=== PATIENT | female | born 1935 | race Caucasian/White ===

== ENCOUNTER 2017-03-12 16:08 | Emergency (ER) | payer OTHER ==
--- NOTE | ~2017-03-12 | CR72 ---
[facility] A Service of [facility] RADIOLOGY TEXT RESULTS PATIENT: BRIGID PENA LOCATION: [facility] : 31 UNIT #: [id number] AGE: [address]: Lance Ramirez MD SEX: F ORDER DR: [id number] [facility] [address] [place], [place] [address] [id number] MR#: [id number] Acc #: [id number] NAME: BRIGID PENA : 1935 SEX: F STUDY DATE/TIME: 03/12/2017 17:11 UNIT: [facility] ROOM: STUDY DESCRIPTION: CR Chest Single View Portable Attending Physician: Lance Ramirez M.D. Ordering Physician: Lance Ramirez M.D. Primary Care Physician: Manjit Rasmussen M.D. MEDICAL IMAGING REPORT This report is preliminary unless electronic signature is present EXAM Portable chest x-ray 03/12/2017 HISTORY Short of air. Right breast cancer. Mouth cancer. Syncope. Short of air with activity, began 03/12/2017. Status post fall. TECHNIQUE AP radiograph of the chest is presented COMPARISON Chest radiograph 02/16/2011, CT examination 02/11/2013, and prior chest radiographs from 01/2007 and 04/2006 FINDINGS The patient appears to be status post right mastectomy and axillary node dissection. No clearly acute bony abnormality. Heart upper limits of normal in size to mildly enlarged. Lung volumes moderate. No acute pulmonary disease, pleural effusion or pneumothorax. No suspicious nodule. Area of increased density right paratracheal region just above the medial right clavicle, unchanged from multiple prior studies dating to 2005 and favored to represent superimposition artifact of bony structures and tortuous mediastinal vessels. No indication of suspicious pulmonary nodule. The upper abdomen shows gallstone. Also seen on multiple prior studies, visualized bowel gas pattern normal. Dictated by... Gene Blanchard M.D. THIS IS AN ELECTRONICALLY VERIFIED REPORT [facility] A Service of [facility] RADIOLOGY TEXT RESULTS PATIENT: BRIGID PENA LOCATION: [facility] : 31 UNIT #: [id number] AGE: [address]: Lance Ramirez MD SEX: F ORDER DR: Gene Blanchard M.D. at 03/14/2017 11:34 AM FLAVIO/alek TD: 03/13/2017 13:02 JOB #: [id number] MEDICAL IMAGING REPORT Page 1 of 1 COPY
--- NOTE | ~2017-03-12 | EKG ---
PATIENT: BRIGID PENA UNIT #: [id number] Ventricular Rate: 134 BPM Atrial Rate: 138 BPM QRS Duration: 80 ms Q-T Interval: 294 ms QTC Calculation(Bezet): 439 ms Calculated R [place]: 16 degrees Calculated T [place]: -175 degrees Diagnosis Line: Atrial fibrillation with rapid ventricular Diagnosis Line: response Diagnosis Line: Voltage criteria for left ventricular hypertrophy Diagnosis Line: ST and T wave abnormality, consider inferior Diagnosis Line: ischemia Diagnosis Line: ST and T wave abnormality, consider anterolateral Diagnosis Line: ischemia Diagnosis Line: Abnormal ECG Diagnosis Line: No previous ECGs available Diagnosis Line: Confirmed by BRIDGER MEYER MD ([id number]) on 03/13/2017 Diagnosis Line: 3:31:00 PM INTERPRETING MD: BETSY PRICE
[~2017-03-12 16:08] MED LIST: ARIMIDEX1 MG; CAPOZIDE; CARDIZEM CD; HCTZ; LIPITOR; MIACALCIN4 ML; MULTI-VITAMIN1 TAB
[2017-03-12 17:50] LABS: BASOPHIL% 0.2 % (0-2.5); HEMATOCRIT 33.1 % (35.0-45.0); HEMOGLOBIN 10.8 gm/dL (12.0-16.0); LYMPHOCYTE# 0.4 X10e3 (1.0-3.5); LYMPHOCYTE% 4.6 % (17.0-45.0); MEAN CELL VOLUME 86.6 FL (83-96); MEAN CORPUSCULAR HEMOGLOBIN 28.4 PG (28-34); MEAN CORPUSCULAR HGB CONC 32.8 g/dL (30-36); MEAN PLATELET VOLUME 8.7 FL (6.5-11.5); MONOCYTE% 12.1 % (3.0-12.0); NEUTROPHIL% 83.1 % (40-75); PLATELET COUNT 192 X10e3 (140-420); RED BLOOD COUNT 3.82 X10e (3.90-5.30); RED CELL DISTRIBUTION WIDTH 14.2 % (11.0-15.5); WHITE BLOOD COUNT 8.4 X10e3 (4.0-10.5)
[2017-03-12 17:56] LABS: DIFF IND NO
[2017-03-12 18:07] LABS: URINE SOURCE CLEAN CATCH
[2017-03-12 18:13] LABS: ALBUMIN SERUM 3.4 g/dL (3.5-5.0); BILIRUBIN, DIRECT 0.3 mg/dL (0.0-0.2); BILIRUBIN,INDIRECT 0.9 mg/dL (0.0-0.9); BILIRUBIN,TOTAL 1.2 mg/dL (0.2-2.0); BUN/CREATININE RATIO 22.63; CALCIUM SERUM 7.9 mg/dL (8.4-10.2); CREATININE SERUM 1.9 mg/dL (0.6-1.4); POTASSIUM 3.6 mmol/L (3.5-5.1); PROTEIN TOTAL SERUM 6.4 g/dL (6.0-8.3)
[2017-03-12 18:21] LABS: INR >13.8
[2017-03-12 18:32] LABS: URINE BLOOD 4+ (NEG); URINE COLOR RED; URINE GLUCOSE 100 MG/DL (NORM); URINE KETONE NEG (NEG); URINE LEUKOCYTE ESTERASE NEG (NEG); URINE NITRATE NEG (NEG); URINE PROTEIN 3+ (NEG); URINE SPECIFIC GRAVITY 1.015 (1.003-1.035); URINE UROBILINOGEN NORM (NORM)
[2017-03-12 18:36] LABS: URINE APPEARANCE TURBID; URINE BILIRUBIN NEG (NEG)
[2017-03-12 18:37] LABS: CULTURE INDICATED? YES
[2017-03-12 18:38] LABS: URBCS1 AUWI INNUM /[HPF] (0-2); URINE SQUAMOUS EPITHELIAL CELL NONE SEEN /[HPF]
[2017-03-12 19:35] LABS: POC - CKMB 2.9 ng/mL (0.0-7.9); POC - TROPONIN <0.05 ng/mL (<=0.05)
== END 2017-03-12 21:11 ==
LOC: CED 16:08
PROVIDERS: Emergency Medicine
DX: R55 Syncope and collapse (principal); I48.91 Unspecified atrial fibrillation; N93.9 Abnormal uterine and vaginal bleeding, unspecified; T45.515A Adverse effect of anticoagulants, initial encounter; I10 Essential (primary) hypertension
CPT/HCPCS: 36415; 71010; 80048; 80076; 81003; 82553; 84484; 85025; 85610; 87086; 93005; 96361; 96374; 99285; J3430; J3490